=== PATIENT | male | born 1950 | race African-American/Black ===

== ENCOUNTER 2016-10-01 08:21 | Inpatient (IN) ==
[2016-10-01] MEDS ORDERED: MORPHINE 2 MG/1 ML SYRINGE IV STA (09:46)
[2016-10-01] MEDS ORDERED: methylPREDNISolone SOD SUC 125 MG/2 ML VIAL IV STA (09:46)
[2016-10-01] MEDS ORDERED: SODIUM CHLORIDE 0.9% 500 ML IV STA (09:46)
[2016-10-01] MEDS ORDERED: NITROGLYCERIN 2% OINT 1 INCH/GM PACK TOP STA (09:46)
[2016-10-01] MEDS ORDERED: ALUM/MAG/SIMETH/LIDO VISC 1:1 30 ML BOTTLE PO STA (09:46)
[2016-10-01] MEDS ORDERED: ALBUTEROL/IPRATROPIUM 3 ML NEB RESP TX STA (09:46)
[2016-10-01] MEDS ORDERED: ONDANSETRON 4 MG/2 ML VIAL IV STA (09:46)
[2016-10-01] MEDS ORDERED: ASPIRIN 325 MG TABLET PO STA (09:46)
[2016-10-01] MEDS ORDERED: NITROGLYCERIN 2% OINT 1 INCH/GM PACK TOP ONE (09:56)
[2016-10-01] MEDS ORDERED: ONDANSETRON 4 MG/2 ML VIAL ONE (09:56)
[2016-10-01] MEDS ORDERED: ALUM/MAG/SIMETH/LIDO VISC 1:1 30 ML BOTTLE PO ONE (09:57)
[2016-10-01] MEDS ORDERED: ASPIRIN 325 MG TABLET ONE (09:57)
[2016-10-01] MEDS ORDERED: MORPHINE 2 MG/1 ML SYRINGE ONE (09:57)
[2016-10-01 09:58] LABS: Basophils % 0.3 % (0.0-0.8); Eosinophils # 0.1 10*3/uL (0.0-0.87); Eosinophils % 3.4 % (0.00-10.9); Hematocrit 40.3 VOL% (42.0-52.0); Hemoglobin 13.6 GM/DL (14.0-18.0); Immature Granulocytes % 0.3 %; Immature Granulocytes Absolute 0.01 #; Lymphocytes # 1.4 10*3/uL (1.4-4.0); Mean Corpuscular HGB Conc 33.7 GM/DL (32-36); Mean Corpuscular Hemoglobin 32 PG (27-34); Mean Platelet Volume 10.6 FL (9.6-12.0); Monocytes # 0.3 10*3/uL (0.11-0.8); Monocytes % 6.9 % (1.7-12.7); Neutrophils % 53.1 % (38.7-73.9); Platelet Count 185 T/CUMM (130-400); Red Blood Count 4.24 MC/CUMM (3.8-5.5); Red Cell Distribution Width 13.4 % (9.3-17.3); White Blood Count 3.8 T/CUMM (4-12)
--- NOTE | 2016-10-01 10:02 | XRay Report ---
XR chest 1V portable Indication: Chest pain Comparison: Chest x-ray dated June 29, 2015 Technique: Single frontal view of the chest. Findings: The cardiomediastinal silhouette is stable in configuration. Port catheter appears grossly unchanged. No focal consolidation, pleural effusion, or pneumothorax. Visualized osseous and surrounding soft tissue structures appear grossly unchanged. IMPRESSION: No acute cardiopulmonary process demonstrated. PROCEDURE INTERPRETED AT [facility] DEPARTMENT OF RADIOLOGY Final Report Signed by: Dr Nael Mak
[2016-10-01 10:05] LABS: PT Patient Result 10.6 SECS
[2016-10-01] MEDS ORDERED: methylPREDNISolone SOD SUC 125 MG/2 ML VIAL ONE (10:06)
--- NOTE | 2016-10-01 10:10 | Emergency Department Note ---
ILaisha Gwan, am scribing for, and in the presence of, Star Simpson MD 09 :40. ITatiana Charles R, MD, personally performed the services described in this documentation, ascribed by Sharif Interiano in my presence, and it is both accurate and complete . Arrival - Arrival Chief Complaint: Chest Pain Stated Complaint: chest ED Nursing Triage Note: pt reports pain in center of his chest for one week. upon further questioning reports that he has been trying to fight off a cold for a week but cant get anything up. pt reports that he woke up this morning feeling weak. Mode of Arrival: Ambulatory Limitations: No Limitations Source: Patient, Guardian (Employer ), Old Records Reviewed, RN Notes Reviewed Time Seen by Provider: 10/01/16 09:13 - History of Present Illness HPI Narrative: Patient is a ill-appearing 66 y/o black male who presents to the ED with a c/o generalized weakness and chest pain with an onset 3 weeks ago. Patient is a poor historian but he is accompanied by his employer. His associated sxs have been dry cough, worsening chest pain with exertion and pt stated that it feels as if he can not get "it" to come up even though he has been trying to cough it up. Employer confirmed that he went to pick the pt up this morning and he noticed that the pt could barely stand and appeared very weak prompting their visit to the ED for further evaluation. Employer continued to note that the pt has been c/o a cold with cough and congestion for the past 2 weeks. Patient confirmed that he has a SHx of smoking and ETOH use only on the weekends. No other problems/complaints reported in ED. Onset (ago): week(s) Consistency: constant Severity: moderate Allergies/Adverse Reactions: Allergies Allergy/AdvReac Type Severity Reaction Status Date / Time Penicillins Allergy Unknown Unknown/Unable Verified 06/29/15 11:25 to obtain Home Medications: Home Medications Medication Instructions Recorded Confirmed Type No Known Home Medications [No 10/01/16 10/01/16 History Known Home Medications] Review of System - Review of System 12 point system: reviewed and no additional remarkable complaints except as stated - Review of System Constitutional: Absent: chills, diaphoresis, fever Eyes: Absent: discharge, pain Head/Ears/Nose/Throat: Absent: earache Respiratory: Present: as per HPI, cough, other (shortness of breathe) Cardiovascular: Present: as per HPI, chest pain Gastrointestinal: Absent: abdominal pain, nausea Genitourinary male: Absent: urgency, dysuria, frequency Musculoskeletal: Absent: arm pain, back pain, leg pain, neck pain Skin: Absent: rash, lesions Neurological: Present: as per HPI, weakness. Absent: headache Medical,Surgical,& Family Hx - Social History Smoking Status: Current every day smoker Exam Vital Signs: Vital Signs Temperature 98.9 F 10/01/16 08:35 Pulse Rate 46 L 10/01/16 10:05 Respiratory Rate 12 10/01/16 10:05 Blood Pressure 117/78 10/01/16 09:30 O2 Sat by Pulse Oximetry 100 10/01/16 10:05 - General General appearance: alert, in no apparent distress, other (malnourished) - Head Head exam: Present: atraumatic, normocephalic - Eye Eye exam: Present: normal appearance, PERRL, EOMI - ENT ENT exam: Present: normal oropharynx, mucous membranes moist, TM's normal bilaterally, normal external ear exam - Neck Neck exam: Present: full ROM, trachea midline. Absent: tenderness - Chest Chest inspection: Present: symmetric chest wall rise. Absent: tenderness - Respiratory Respiratory exam: Present: rhonchi (bilaterally), wheezes (expiratory wheezes) - Cardiovascular Cardiovascular exam: Present: murmur (2/6 systolic injection murmur) - Abdominal Exam Abdominal exam: Present: soft, normal bowel sounds. Absent: distention, tenderness - Extremities Exam Extremities exam: Present: full ROM, other (clubbing noted to bilateral upper extremities to include his hands ). Absent: tenderness - Back Exam Back exam: Present: full ROM. Absent: tenderness - Neurological Exam Neurological exam: Present: alert, oriented X3, CN II-XII intact. Absent: motor sensory deficit - Psychiatric Psychiatric exam: Present: normal affect, normal mood - Skin Skin exam: Present: other (appearance of atrophied muscles) Course - Consultations Consultation #1: Hospitalist will admit patient Time: 11:06 Results - Labs CBC & BMP: 10/01/16 09:29 10/01/16 09:29 Lab Results: I have reviewed the patients labs Labs: Laboratory Tests 10/01/16 10/01/16 09:29 09:29 WBC 3.8 L RBC 4.24 Hgb 13.6 L Hct 40.3 L Plt Count 185 INR 1.0 PT Patient/Control Mix 10.6 D-Dimer, Quantitative <= 0.5 Laboratory Tests 10/01/16 10/01/16 10/01/16 09:29 09:29 09:29 D-Dimer, Quantitative <= 0.5 Sodium Potassium Chloride Carbon Dioxide BUN Creatinine Troponin I < 0.015 Total Protein Lipase Serum Alcohol < 15 L 10/01/16 09:29 D-Dimer, Quantitative Sodium 144 Potassium 3.7 Chloride 108 H Carbon Dioxide 27 BUN 10 Creatinine 1.00 Troponin I Total Protein 6.2 L Lipase 130.0 Serum Alcohol - Diagnostic Findings Procedure: Chest x-ray: report reviewed by me (No acute cardiopulmonary process demonstrated. ) Disposition Clinical Impression: Chest pain, Atypical chest pain, Acute dyspnea, Tobacco abuse, General weakness Case discussed with: patient Disposition: Still a Patient Condition: Stable Time of Disposition: 11:07
[2016-10-01 10:19] LABS: D-Dimer <= 0.5 MG/L FEU
[2016-10-01 10:20] LABS: Albumin 3.4 G/DL (3.4-5.0); Bilirubin,Total 0.6 MG/DL (0.2-1.0); Calcium 8.5 MG/DL (8.5-10.1); Magnesium 2.2 MG/DL (1.8-2.4); Osmolality,Calculated 283.8 MOS/KG (273-304); Potassium 3.7 MMOL/L (3.5-5.1); Total Protein 6.2 G/DL (6.4-8.3)
--- NOTE | 2016-10-01 10:46 | EKG Report ---
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
--- NOTE | 2016-10-01 11:46 | Hospitalist History & Physical ---
<Eden Galoda - Last Filed: 10/01/16 11:35> Assessment and Plan (1) Chest pain Status: Acute Assessment and plan: Initial troponins were essentially benign, we will conduct a full cardiac workup. We will obtain echo, carotid doppler, lipid panel, and thyroid panel. If troponins are positive, we will consult cardiology to evaluate. Current Visit: Yes (2) Acute dyspnea Status: Acute Assessment and plan: Although his chest x-ray was clear and his WBCs were insignificant, the patient may have some underlying pulmonary processes which are probably chronic in nature. We will start inhaled bronchodilators; no need for antibiotic coverage at this time. Current Visit: Yes (3) Tobacco abuse Status: Acute Assessment and plan: The patient reports current tobacco use, however reports that he is going to stop. Spoke with patient in great detail regarding the importance of cessation , we will place a nicotine patch on during the clinical encounter. Patient is in agreement. Current Visit: Yes (4) General weakness Status: Acute Assessment and plan: I feel his weakness is secondary to the severity of his symptoms. Either way we will conduct a full cardiac workup. We will consult physical therapy and Occupational Therapy to evaluate. Current Visit: Yes History of Present Illness Chief complaint: chest pain and shortness of breath History of present illness: This is a very pleasant 66-year-old male that presented to the ED at [facility] for evaluation of chest pain and shortness of breath. The patient has a medical history significant for nicotine addiction and alcohol abuse. The patient reports the onset of the above symptoms 2 weeks prior to presentation. He reports that he has become gradually weaker and short of breath as the time progressed. He also reports that he has not been able to work efficiently secondary to the above symptoms. Pertinent positives include: Shortness of breath, cough, chest pain; pertinent negatives include: syncope, diaphoresis, vision changes, headache, jaw and arm pain, nausea, vomiting, and epigastric pain. In addition the patient reports cold-like symptoms 2 weeks. He reports that he is a current smoker Labs were obtained at the time of presentation which reported a white blood cell count at 3.8, hemoglobin at 13.6, hematocrit 40.3, and platelet count 185 chloride. Coagulation panels were obtained which reported an INR at 1.0, PT of 10.6, and d-dimer at greater than or equal to 0.5 chemistry panels were obtained which reported a sodium at 144, potassium 3.7, chloride at 108, carbon dioxide 27, anion gap at 12.7, BUN 18, creatinine at 1.0, glucose at 84, calcium at 8.5, magnesium at 2.2, total bilirubin at 0.60, AST of 28, ALT at 21 , and alkaline phosphatase at 63. Troponin level was noted at less than 0.015 and BNP was noted at 33. Serum alcohol level was noted at less than 15. Chest x-ray was obtained which was negative for any acute cardiopulmonary processes. After brief discussion with Dr. Dr. Simpson and Dr. Arita, the patient will be admitted to the hospitalist services for continuation of care. Home Medications Medication Instructions Recorded Confirmed Type No Known Home Medications [No 10/01/16 10/01/16 History Known Home Medications] Allergies Allergy/AdvReac Type Severity Reaction Status Date / Time Penicillins Allergy Unknown Unknown/Unable Verified 06/29/15 11:25 to obtain Medical,Surgical,& Family Hx - Social History Smoking Status: Current every day smoker Have you smoked in the last 12 months: Yes Time spent discussing smoking cessation with patient: more than 10 minutes Frequency of Alcohol Use: None Marital Status: Single Lives With:: Alone Functional capacity: independent ambulation 12 point system: reviewed and no additional remarkable complaints except as stated Exam - Constitutional Vitals: Period Temp Pulse Resp BP Sys/Santamaria Pulse Ox Last 24 Hr 98.9 F 45-69 12-20 117-131/74-82 94-100 General appearance: no acute distress, under weight - Head Head exam: Present: normal inspection, normocephalic, atraumatic - Eye Eye exam: Present: EOMI. Absent: conjunctival injection Pupils: Present: JACQUELYN, normal accommodation - ENT ENT exam: Present: normal exam, normal external ear exam, normal oropharynx - Neck Neck exam: Present: normal inspection. Absent: lymphadenopathy, meningismus, tenderness, thyromegaly - Respiratory Respiratory exam: Present: clear to auscultation bilaterally, rhonchi (Scattered ), wheezes (Expiratory) - Cardiovascular Cardiovascular exam: Present: regular rate and rhythm, systolic murmur - GI/Abdominal GI/Abdominal exam: Present: normal bowel sounds, soft. Absent: tenderness - Extremities Exam Extremities exam: Present: normal inspection, normal capillary refill, full ROM. Absent: calf tenderness, edema - Back Exam Back exam: Present: normal inspection - Neurological Exam Neurological exam: Present: alert, oriented X3, CN II-XII intact - Psychiatric Psychiatric exam: Present: normal affect, normal mood - Skin Skin exam: Present: normal color, warm, dry Results - Labs CBC & BMP: 10/01/16 09:29 10/01/16 09:29 Lab Results: I have reviewed the past 24 hour labs <Joe Arita - Last Filed: 10/01/16 13:29> History of Present Illness History of present illness: Mr. Segundo is a 66 year old male Exam - Constitutional Vitals: Period Temp Pulse Resp BP Sys/Santamaria Pulse Ox Last 24 Hr 98.8 F-98.9 F 45-69 12-20 117-131/74-83 94-100 Results - Labs CBC & BMP: 10/01/16 09:29 10/01/16 09:29
--- NOTE | 2016-10-01 14:11 | EKG Report ---
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
--- NOTE | 2016-10-01 15:14 | EKG Report ---
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
[2016-10-01] MEDS: ALUMINUM/MAGNES/SIMETH MAX STR 30 ML UDCUP PO SCH ×2 (15:54→19:11)
[2016-10-01] MEDS: SODIUM CHLORIDE 0.9% 1,000 ML IV SCH (15:55)
[2016-10-01] MEDS: HYDROmorphone 2 MG/1 ML VIAL IV PRN (20:03)
[2016-10-01] MEDS: PANTOPRAZOLE 40 MG TABLET PO SCH (21:45)
--- NOTE | 2016-10-01 22:02 | Cardiology Consult Note ---
I, Nancy Herman RN, am scribing for, and in the presence of, Tomi Hough MD 22:02. Assessment and Plan - Time spent with patient Time spent with patient: Greater than 30 minutes (Due to assessment, planning, documentation, and medication review) (1) Chest pain Status: Acute Assessment and plan: The patient is very vague regarding his "chest pain". He states his indigestion or gas. Is in the left anterior chest area about a quarter sized area. There is some chest wall tenderness at that time area but he also has tenderness of his abdomen. Differential diagnosis would include chest wall pain, GI, muscle skeletal, or some other cause. My suspicion that this is ACS or even cardiac related is low. Plan/recommendations: Serial isoenzymes. Serial EKGs. Treat chest wall pain-tramadol, Tylenol, gabapentin tx for GE reflux Further workup is being done An echo has been ordered. Will review it. At this point, I do not believe he needs a heart catheter or treadmill. It could be done later, outpatient if needed. 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 Segundo is a 66 year old male who has never been seen by a dispatcher automobile rental. He is a poor historian and does not really want to talk about his symptoms. When asked about his history, he tells me he has never been sick. He has a port to his right chest. When I ask about this, he tells me he got that after he had his "intestines blocked" in 2013 and had surgery for that. Family history that he knows includes mother with heart failure and brother with heart disease. He reports he is a 2 pack/week smoker, but that he quit today. He drinks alcohol weekly, but he reports that he quit that today as well. He says he lives at an "adult daycare". He tells me he has had a cough for 3 weeks. He says he has "cold" in his chest , but he has been unable to cough it up. When I first ask him about his chest pain, he tells me that he hasn't had any pain. When asked again, he says it is related to the congestion in his chest. He can not describe it for me or answer any questions about it. He tells me he has not been short of breath, then he tells me that he has been short of breath. I cannot from him if this is at rest or on exertion. EKG on admission was sinus bradycardia with heart rate of 53. Chest x-ray showed no acute cardiopulmonary process. Presently he is resting in bed in no acute distress. He denies any chest pain or shortness of breath at present. Troponin has been negative times 2, BNP was 33. gambling monitor currently shows sinus rhythm with heart rates in the 60' s. CC: Joe Arita MD - Home Medications and Allergies Home Medications: Home Medications Medication Instructions Recorded Confirmed Type No Known Home Medications [No 10/01/16 10/01/16 History Known Home Medications] Allergies/Adverse Reactions: Allergies Allergy/AdvReac Type Severity Reaction Status Date / Time Penicillins Allergy Unknown Unknown/Unable Verified 06/29/15 11:25 to obtain ROS unobtainable: due to mental status Medical,Surgical,& Family Hx - Surgical History Abdominal Surgeries: Surgical HX of: Abdominal Surgery ("stomcah surgery") Orthopedic Surgeries: Surgical HX of;: Orthopedic Surgery (right collar bone, right wrist) - Family History Family History: Reports;: Family Heart Disease (Mother, brother) - Social History Smoking Status: Current every day smoker (states he quit today) Have you smoked in the last 12 months: Yes Time spent discussing smoking cessation with patient: 3 to 10 minutes Frequency of Alcohol Use: Frequently (states he quit today) Type of Drug Use: Cocaine Lives With:: states he lives at an "adult daycare" Functional capacity: independent ambulation Physical Examination Vital Signs Temp Pulse Resp BP Pulse Ox 98.9 F 69 18 121/74 94 L 10/01/16 08:35 10/01/16 08:35 10/01/16 08:35 10/01/16 08:35 10/01/16 08:35 General: Present: Appears Well, No Apparent Distress HEENT: Present: PERRL, Mucus Membranes Moist Neck: Present: Supple Neck, Midline Trachea, No Bruit Cardiac: Present: Reg Rate and Rhythm, Bradycardia Lungs: Present: Scattered Rhonchi, No Wheezes, No Rales. Absent: Oxygen Neuro: Absent: Resting Tremor, Essential Tremor Abdomen: Present: Soft, Active Bowel Sounds, Non-Tender Musculoskeletal: Present: Normal Range of Motion Gait: Present: Poor Gait Extremities: Present: No Edema, Normal Upper Extr. Pulses, Normal Lower Extr. Pulses Result/EKG - Labs CBC & BMP: 10/01/16 09:29 10/01/16 09:29 Lab Results: I have reviewed the past 24 hour labs Labs: Laboratory Results - last 24 hr 10/01/16 10/01/16 10/01/16 09:29 09:29 09:29 WBC 3.8 L RBC 4.24 Hgb 13.6 L Hct 40.3 L MCV 95.0 MCH 32 MCHC 33.7 RDW 13.4 Plt Count 185 MPV 10.6 Neut % (Auto) 53.1 Lymph % (Auto) 36.0 [place] % (Auto) 6.9 Eos % (Auto) 3.4 Baso % (Auto) 0.3 Neut # (Auto) 2.0 Lymph # (Auto) 1.4 [place] # (Auto) 0.3 Eos # (Auto) 0.1 Baso # (Auto) 0.0 Immature Gran % 0.3 Nucleated RBC % 0.0 Immature Gran # 0.01 Nucleated RBCs # 0.00 INR PT Patient/Control Mix D-Dimer, Quantitative Sodium Potassium Chloride Carbon Dioxide Anion Gap BUN Creatinine GFR Calculation BUN/Creatinine Ratio Glucose Calculated Osmolality Calcium Magnesium Total Bilirubin AST ALT Alkaline Phosphatase Troponin I < 0.015 B-Natriuretic Peptide Total Protein Albumin Globulin Albumin/Globulin Ratio Lipase Serum Alcohol < 15 L 10/01/16 10/01/16 10/01/16 09:29 09:29 09:29 WBC RBC Hgb Hct MCV MCH MCHC RDW Plt Count MPV Neut % (Auto) Lymph % (Auto) [place] % (Auto) Eos % (Auto) Baso % (Auto) Neut # (Auto) Lymph # (Auto) [place] # (Auto) Eos # (Auto) Baso # (Auto) Immature Gran % Nucleated RBC % Immature Gran # Nucleated RBCs # INR 1.0 PT Patient/Control Mix 10.6 D-Dimer, Quantitative <= 0.5 Sodium 144 Potassium 3.7 Chloride 108 H Carbon Dioxide 27 Anion Gap 12.7 BUN 10 Creatinine 1.00 GFR Calculation 97 BUN/Creatinine Ratio 10.00 Glucose 84 Calculated Osmolality 283.8 Calcium 8.5 Magnesium 2.2 Total Bilirubin 0.60 AST 28 ALT 21 Alkaline Phosphatase 63 Troponin I B-Natriuretic Peptide 33 Total Protein 6.2 L Albumin 3.4 Globulin 2.8 Albumin/Globulin Ratio 1.2 Lipase 130.0 Serum Alcohol 10/01/16 12:52 WBC RBC Hgb Hct MCV MCH MCHC RDW Plt Count MPV Neut % (Auto) Lymph % (Auto) [place] % (Auto) Eos % (Auto) Baso % (Auto) Neut # (Auto) Lymph # (Auto) [place] # (Auto) Eos # (Auto) Baso # (Auto) Immature Gran % Nucleated RBC % Immature Gran # Nucleated RBCs # INR PT Patient/Control Mix D-Dimer, Quantitative Sodium Potassium Chloride Carbon Dioxide Anion Gap BUN Creatinine GFR Calculation BUN/Creatinine Ratio Glucose Calculated Osmolality Calcium Magnesium Total Bilirubin AST ALT Alkaline Phosphatase Troponin I < 0.015 B-Natriuretic Peptide Total Protein Albumin Globulin Albumin/Globulin Ratio Lipase Serum Alcohol - Diagnostic Findings Procedure: Chest x-ray: report reviewed by me - EKG EKG results: interpreted by me EKG shows: sinus rhythm IGianluca Dale, MD, personally performed the services described in this documentation, ascribed by Nancy Herman RN in my presence, and it is both accurate and complete .
[2016-10-02] MEDS: ALUMINUM/MAGNES/SIMETH MAX STR 30 ML UDCUP PO SCH ×3 (00:31→08:40)
[2016-10-02] MEDS: SODIUM CHLORIDE 0.9% 1,000 ML IV SCH ×5 (01:30→23:55)
[2016-10-02] MEDS: HYDROmorphone 2 MG/1 ML VIAL IV PRN (02:36)
[2016-10-02 06:08] LABS: Alanine Aminotransferase 19 U/L (16-61); Albumin 2.9 G/DL (3.4-5.0); Alkaline Phosphatase 56 U/L (45-117); Aspartate Amino Transferase 19 U/L (0-37); Blood Urea Nitrogen 12 MG/DL (7-18); Calcium 8.6 MG/DL (8.5-10.1); Glucose 88 MG/DL (74-106); Magnesium 2.4 MG/DL (1.8-2.4); Osmolality,Calculated 286.7 MOS/KG (273-304); Potassium 3.9 MMOL/L (3.5-5.1); Sodium 145 MMOL/L (136-145); Total Protein 5.4 G/DL (6.4-8.3); Troponin I Only < 0.015 NG/ML (0.00-0.045)
[2016-10-02] MEDS: PANTOPRAZOLE 40 MG TABLET PO SCH ×2 (08:40→21:57)
--- NOTE | 2016-10-02 09:25 | Hospitalist Progress Note ---
Assessment and Plan (1) Chest pain Status: Acute Assessment and plan: Initial troponins were essentially benign, we will conduct a full cardiac workup. We will obtain echo, If troponins are positive, we will consult cardiology to evaluate. 10/02-repeat cardiac enzymes were negative. Echo was obtained; awaiting results. No further episodes of chest pain and discomfort verbalized. Current Visit: Yes (2) Acute dyspnea Status: Acute Assessment and plan: Although his chest x-ray was clear and his WBCs were insignificant, the patient may have some underlying pulmonary processes which are probably chronic in nature. We will start inhaled bronchodilators; no need for antibiotic coverage at this time. 10/02-no further episodes of shortness of breath reported. Continue inhaled bronchodilators as previously ordered period. Current Visit: Yes (3) Tobacco abuse Status: Acute Assessment and plan: The patient reports current tobacco use, however reports that he is going to stop. Spoke with patient in great detail regarding the importance of cessation , we will place a nicotine patch on during the clinical encounter. Patient is in agreement. Current Visit: Yes (4) General weakness Status: Acute Assessment and plan: I feel his weakness is secondary to the severity of his symptoms. Either way we will conduct a full cardiac workup. We will consult physical therapy and Occupational Therapy to evaluate. Current Visit: Yes (5) Abdominal pain Status: Acute Assessment and plan: Patient reported abdominal pain only after breakfast consumption. I have asked patient not to attempt to eat any additional food. Will obtain CT of the abdomen and pelvis without contrast to evaluate. GI was consulted on yesterday awaiting evaluation. Current Visit: No Hospitalist: Subjective Interval history: Patient seen and examined; no significant overnight events. Cardiac enzymes were benign; however the patient verbalizes intense abdominal pain. He reported the onset of pain immediately after his medial. We will obtain CT of the abdomen and pelvis for good measures. Exam - Constitutional Vitals: Period Temp Pulse Resp BP Sys/Santamaria Pulse Ox Last 24 Hr 98.0 F-99.2 F 45-80 12-20 97-131/53-83 94-100 General appearance: normal weight, no acute distress - Head Head exam: Present: normal inspection, normocephalic, atraumatic - Eye Eye exam: Present: EOMI. Absent: conjunctival injection Pupils: Present: JACQUELYN, normal accommodation - ENT ENT exam: Present: normal exam, normal external ear exam, normal oropharynx - Neck Neck exam: Present: normal inspection. Absent: lymphadenopathy, meningismus, tenderness, thyromegaly - Respiratory Respiratory exam: Present: clear to auscultation bilaterally. Absent: rales, rhonchi, stridor, wheezes - Cardiovascular Cardiovascular exam: Present: regular rate and rhythm. Absent: carotid bruit, diastolic murmur, gallop, JVD, rubs, systolic murmur - GI/Abdominal GI/Abdominal exam: Present: normal bowel sounds, tenderness - Extremities Exam Extremities exam: Present: normal inspection, normal capillary refill, full ROM. Absent: calf tenderness, edema - Neurological Exam Neurological exam: Present: alert, oriented X3, CN II-XII intact - Psychiatric Psychiatric exam: Present: normal affect, normal mood - Skin Skin exam: Present: normal color, warm, dry Results - Labs CBC & BMP: 10/01/16 09:29 10/02/16 04:55 Lab Results: I have reviewed the past 24 hour labs
--- NOTE | 2016-10-02 09:53 | Gastrointestinal Consult Note ---
Assessment and Plan (1) Abdominal pain Status: Acute Assessment and plan: 6/-Worsening epigastric pain, no precipitating factors. No other associated symptoms. Hx of colon cancer in 2013 with resection/chemotherapy. No known history of endoscopy at our facility. CT of abdomen pending this morning. Plan and addendum to follow by Dr Lucas. Current Visit: No History of Present Illness Chief complaint: Epigastric pain History of present illness: Mr. Segundo is a 66 year old male who was admitted to the hospital with atypical chest pain. Pt is a fair historian and difficult to keep focused on current health status. Information is also obtained from chart review. 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 He goes to work daily however when his employer came to pick him up on yesterday he was weak and unable to stand. He was also complaining of a cough and congestion for the last 2-3 weeks. He was then brought to the ER. Pt states that 3 weeks ago he developed a cough and has been unable to cough anything up since onset. He states he coughs constantly. He also states he has been having some upper abdominal pain that he has had off and on for several years. He states the pain doesnt seem to be precipitated by any known factors and just occurs randomly. He does state that it seems to worsen at times after eating a meal. He denies any nausea, vomiting or weight loss. He denies any changes in his bowel pattern. Denies any melena or hematochezia. Denies any GERD, dysphagia or dyspepsia. He states that he uses home remedies when he is sick such as he has been eating "[employer] salve" since he was a child for different ailments. He smokes daily and also has drank a couple of cases of beer every weekend for forty something years although denies drinking daily or during the work week. He states he is going to stop his alcohol and tobacco use now. He denies any history of endoscopy however noted he did have a right colectomy by Dr Rodriguez in 2012 after findings of colon cancer with near obstruction mass and partial perforation of peritoneal viscera. He also underwent several rounds of chemotherapy for this. He denies a history of PUD in the past. Denies NSAID use and states he takes no medications. Home Medications Medication Instructions Recorded Confirmed Type No Known Home Medications [No 10/01/16 10/01/16 History Known Home Medications] Allergies Allergy/AdvReac Type Severity Reaction Status Date / Time Penicillins Allergy Unknown Unknown/Unable Verified 06/29/15 11:25 to obtain Medical,Surgical,& Family Hx - Surgical History Abdominal Surgeries: Surgical HX of: Abdominal Surgery ("stomcah surgery") Orthopedic Surgeries: Surgical HX of;: Orthopedic Surgery (right collar bone, right wrist) - Family History Family History: Reports;: Family Heart Disease (Mother, brother) - Social History Smoking Status: Current every day smoker (states he quit today) Frequency of Alcohol Use: Frequently (states he quit today) Type of Drug Use: Cocaine 12 point system: reviewed and no additional remarkable complaints except as stated - Constitutional Constitutional: Present: as per HPI - EENT Eyes: Present: as per HPI Ears: Present: as per HPI Nose, mouth and throat: Present: as per HPI - Cardiovascular Cardiovascular: Present: as per HPI - Respiratory Respiratory: Present: as per HPI, cough - Gastrointestinal Gastrointestinal: Present: as per HPI, abdominal pain - Genitourinary Genitourinary: Present: as per HPI - Musculoskeletal Musculoskeletal: Present: as per HPI - Neurological Neurological: Present: as per HPI - Psychiatric Psychiatric: Present: as per HPI - Endocrine Endocrine: Present: as per HPI - Hematologic/Lymphatic Hematologic/Lymphatic: Present: as per HPI Exam - Constitutional Vitals: Period Temp Pulse Resp BP Sys/Santamaria Pulse Ox Last 24 Hr 98.0 F-99.2 F 45-80 12-20 97-131/53-83 94-100 General appearance: normal weight, no acute distress - Head Head exam: Present: normal inspection, normocephalic - Eye Eye exam: Present: other (lids and conjuncitva unremarkable). Absent: scleral icterus - ENT ENT exam: Present: normal exam, normal oropharynx - Neck Neck exam: Present: normal inspection - Respiratory Respiratory exam: Present: clear to auscultation bilaterally. Absent: rales, rhonchi, wheezes - Cardiovascular Cardiovascular exam: Present: regular rate and rhythm. Absent: diastolic murmur , JVD, systolic murmur - GI/Abdominal GI/Abdominal exam: Present: normal bowel sounds, soft. Absent: ascites, distended, mass, organomegaly, tenderness - Extremities Exam Extremities exam: Present: normal inspection, full ROM - Back Exam Back exam: Present: normal inspection - Neurological Exam Neurological exam: Present: alert, oriented X3 - Psychiatric Psychiatric exam: Present: normal affect, normal mood - Skin Skin exam: Present: normal color, warm, dry Results - Labs CBC & BMP: 10/01/16 09:29 10/02/16 04:55 Lab Results: I have reviewed the past 24 hour labs
--- NOTE | 2016-10-02 10:17 | CT Report ---
Referring physician: Lisa Moreno MD EXAM: CT abdomen and pelvis without contrast DATE: October 02, 2016 COMPARISON: CT abdomen and pelvis with contrast September 30, 2016 REASON: Generalized abdominal pain, history of colon cancer TECHNIQUE: Axial images of the abdomen and pelvis were obtained without the use of contrast. Coronal and sagittal reformatted images were also provided. Total DLP is 227.6 mGy*cm. FINDINGS: Lower thorax: There is again a calcified granuloma within the right lower lobe, and there is minimal bibasilar atelectasis. ABDOMEN: Liver: There are a few scattered hypodense lesions within the liver. Characterization is limited by the lack of contrast, but they are similar to the previous study of September 30, 2016 and are favored to represent cysts. Gallbladder and bile ducts: The gallbladder is poorly visualized and is likely collapsed. No biliary duct dilatation is seen. Pancreas: Unremarkable as visualized. Spleen: Unremarkable. Adrenals: Unremarkable. Kidneys and ureters: There is a 0.3 cm nonobstructing stone at the lower pole of the left kidney. A few additional punctate nonobstructing renal calculi are also present bilaterally. No hydronephrosis is present, and no ureteral calculi are seen. PELVIS: Bladder: Unremarkable. Reproductive: The prostate is mildly enlarged. ABDOMEN AND PELVIS: Bowel/appendix: There is surgical change within the upper abdomen near midline, suggesting right hemicolectomy. There are also a few mildly distended loops of small bowel with air-fluid levels present within the mid and right upper abdomen. This is a new finding and could represent mild ileus or partial small bowel obstruction. Other considerations include enteritis, especially given the mild fluid within the colon. Evaluation for bowel wall thickening is limited by the lack of contrast. Vasculature: The abdominal aorta is normal in size. There is mild scattered calcified plaque at the arteries. Peritoneum: No free air or ascites is seen. There is mild scattered mesenteric edema. Lymph nodes: No suspicious adenopathy is seen. Abdominal/pelvic wall: Unremarkable. Bones: There is degenerative change at the spine, but no acute osseous process is seen. IMPRESSION: 1. There are a few mildly prominent loops of small bowel with air-fluid levels present within the mid and right upper abdomen. This is a new finding and may represent mild ileus or low-grade partial small bowel obstruction. Other considerations include enteritis. 2. Probable hepatic cysts, not well characterized. 3. Small nonobstructing bilateral renal calculi. The CT exam was performed using one or more of the following dose reduction techniques: Automated exposure control and adjustment of the mA and/or kV according to patient size. PROCEDURE INTERPRETED AT [facility] DEPARTMENT OF RADIOLOGY Final Report Signed by: Dr. Skyler Lorenzo
--- NOTE | 2016-10-02 12:48 | EKG Report ---
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
[2016-10-02] MEDS ORDERED: NAPROXEN 250 MG TABLET PO ONE (13:29)
[2016-10-02] MEDS: ACETAMINOPHEN 325 MG TABLET PO SCH ×2 (13:47→21:57)
[2016-10-02] MEDS: traMADol 50 MG TABLET PO SCH ×2 (13:47→21:57)
[2016-10-02] MEDS: GABAPENTIN 100 MG CAPSULE PO SCH ×2 (16:24→21:58)
--- NOTE | 2016-10-02 23:56 | Cardiology Progress Note ---
I, Nancy Herman RN, am scribing for, and in the presence of, Tomi Hough MD 23:56. Assessment and Plan (1) Chest pain Status: Acute Assessment and plan: Initial assessment and plan 10/01/2016: Assessment and plan: The patient is very vague regarding his "chest pain". He states his indigestion or gas. Is in the left anterior chest area about a quarter sized area. There is some chest wall tenderness at that time area but he also has tenderness of his abdomen. Differential diagnosis would include chest wall pain, GI, muscle skeletal, or some other cause. My suspicion that this is ACS or even cardiac related is low. Plan/recommendations: Serial isoenzymes. Serial EKGs. Treat chest wall pain-tramadol, Tylenol, gabapentin tx for GE reflux Further workup is being done An echo has been ordered. Will review it. At this point, I do not believe he needs a heart catheter or treadmill. It could be done later, outpatient if needed. Assessment and plan 10/02/2016: He has ongoing reproducible left chest wall pain. We'll give a trial of: Tramadol 50 mg by mouth twice a day Tylenol 325 mg by mouth now and twice a day Gabapentin 100 mg by mouth 3 times a day will Assess response to therapy I discussed with the patient. He agrees with the plan. He requests being better before being discharged. I told him we would try our best.. Current Visit: Yes (2) Dyspnea Status: Acute Current Visit: Yes (3) Tobacco abuse Status: Acute Current Visit: Yes (4) Bradycardia Status: Acute Current Visit: Yes Cardiology - PN: Subj Interval history: [employer]: New to cardiology Mr. Segundo is seen resting in bed in no acute distress. He reports he continues to have some chest pain periodically, but states it is better than on admission. He denies any shortness of breath, palpitations, or dizziness. His heart rate has been fluctuating from the 40s to the 80s. lunchroom monitor showed sinus bradycardia with heart rate of 40 around lunchtime. An EKG was obtained that showed sinus bradycardia with heart rate of 49. His nurse says that most of his low heart rates occur when he is sleeping. His troponin continues to be negative. GI has seen him in consultation for abdominal pain. Exam (Progress Note) - Constitutional Vitals: Period Temp Pulse Resp BP Sys/Santamaria Pulse Ox Last 24 Hr 98.0 F-99.2 F 50-80 18-20 97-116/53-72 94-99 Exam: General: Present: Appears Well, No Apparent Distress HEENT: Present: PERRL, Mucus Membranes Moist Neck: Present: Supple Neck, Midline Trachea, No Bruit Cardiac: Present: Reg Rate and Rhythm, Bradycardia Lungs: Present: Scattered Rhonchi, No Wheezes, No Rales. Absent: Oxygen Neuro: Absent: Resting Tremor, Essential Tremor Abdomen: Present: Soft, Active Bowel Sounds, Non-Tender Musculoskeletal: Present: Normal Range of Motion Gait: Present: Poor Gait Extremities: Present: No Edema, Normal Upper Extr. Pulses, Normal Lower Extr. Pulses Result/EKG - Labs CBC & BMP: 10/01/16 09:29 10/02/16 04:55 Lab Results: I have reviewed the past 24 hour labs Labs: Laboratory Results - last 24 hr 10/01/16 10/02/16 16:00 04:55 Sodium 145 Potassium 3.9 Chloride 108 H Carbon Dioxide 28 Anion Gap 12.9 BUN 12 Creatinine 1.10 GFR Calculation 85 BUN/Creatinine Ratio 10.00 Glucose 88 Calculated Osmolality 286.7 Calcium 8.6 Magnesium 2.4 Total Bilirubin 0.50 AST 19 ALT 19 Alkaline Phosphatase 56 Total Creatine Kinase 319 H Troponin I < 0.015 < 0.015 Total Protein 5.4 L Albumin 2.9 L Globulin 2.5 Albumin/Globulin Ratio 1.1 - EKG EKG results: interpreted by me EKG shows: bradycardia, sinus rhythm I, Tomi Hough MD, personally performed the services described in this documentation, ascribed by Nancy Herman RN in my presence, and it is both accurate and complete [id number] .
[2016-10-03 05:37] LABS: Eosinophils # 0.1 10*3/uL (0.0-0.87); Eosinophils % 2.1 % (0.00-10.9); Hematocrit 38.1 VOL% (42.0-52.0); Hemoglobin 12.3 GM/DL (14.0-18.0); Lymphocytes # 2.6 10*3/uL (1.4-4.0); Lymphocytes % 60.6 % (21.2-54.2); Mean Corpuscular HGB Conc 32.3 GM/DL (32-36); Mean Corpuscular Hemoglobin 31 PG (27-34); Mean Corpuscular Volume 97.2 FL (87-102); Mean Platelet Volume 10.9 FL (9.6-12.0); Monocytes # 0.2 10*3/uL (0.11-0.8); Monocytes % 5.6 % (1.7-12.7); Neutrophils # 1.4 10*3/uL (1.4-7.4); Neutrophils % 31.7 % (38.7-73.9); Platelet Count 173 T/CUMM (130-400); Red Blood Count 3.92 MC/CUMM (3.8-5.5); Red Cell Distribution Width 13.6 % (9.3-17.3); White Blood Count 4.3 T/CUMM (4-12)
[2016-10-03 06:05] LABS: Albumin 2.9 G/DL (3.4-5.0); Bilirubin,Total 0.6 MG/DL (0.2-1.0); Calcium 7.9 MG/DL (8.5-10.1); Lymphocytes 63 % (20-55); Magnesium 2.5 MG/DL (1.8-2.4); Osmolality,Calculated 289.6 MOS/KG (273-304); Phosphorous 4.1 MG/DL (2.5-4.9); Potassium 4.7 MMOL/L (3.5-5.1); Segmented Neutrophils 29 % (50-85); Total Cells Counted 100; Total Protein 5.5 G/DL (6.4-8.3)
[2016-10-03 06:06] LABS: Macrocytosis Slight
[2016-10-03 06:07] LABS: Atypical Lymphocytes Few; Hypochromasia 1+; Platelet Estimate Adequate
--- NOTE | 2016-10-03 08:55 | Discharge Summary ---
Hospital Course - Hospital Course Hospital Course: Mr. Segundo is a 66-year-old -[place] male who presented to the ED on 10/01/2016 with complaints of generalized weakness and chest pain for 3 days. Patient was evaluated and subsequently admitted to the hospital medicine service for further observation and treatment. EKG on admission showed sinus bradycardia with T-wave abnormality. Chest x-ray on admission revealed no acute cardiopulmonary process. Patient was transferred to the telemetry unit and cardiology was consulted. Cardiology recommended serial isoenzymes and EKGs , analgesics for chest wall pain and treatment for GERD related symptoms. Subsequent CT of the abdomen was ordered and found a few mildly prominent loops of small bowel with air-fluid levels present within the mid and right upper abdomen. This is a new finding and may represent mild ileus or low-grade partial small bowel obstruction. GI was consulted and found no suggestion of small bowel obstruction however an EGD was planned for 10/03/2016 with an outpatient follow-up colonoscopy. Serial enzymes are negative. Results of the EGD show a small hiatal hernia, otherwise normal EGD. At this time patient has reached maximum benefit from hospitalization and stable for discharge. He will be discharged home with appropriate follow-up instructions per discharge orders as outlined by Dr. Moreno. He should continue PPI therapy outpatient. - Time spent with patient Time with patient DS: Greater than 30 minutes Specialty Discharge - Follow Up or Referrals Follow up with: Tomi Hough MD [Physician] - (In November) Boom Lucas MD [Physician] - (office will call you with appt) Discharge Plan - Discharge Medications New RX: Pantoprazole Tab [Protonix Tab] 40 mg PO BID #60 tablet RX: Gabapentin Cap/Tab [Neurontin Cap/Tab] 100 mg PO TID #90 capsule - Follow Up or Referral Follow Up: Tomi Hough MD [Physician] - (In November) Boom Lucas MD [Physician] - (office will call you with appt) - Forms/Instructions Exam - Constitutional Vitals: Period Temp Pulse Resp BP Sys/Santamaria Pulse Ox Last 24 Hr 96.6 F-98.6 F 46-66 15-21 104-171/54-85 94-100 Discharge Results Procedures and tests throughout hospitalization: Pending Orders 10/04/16 04:00 BMP w/ Mg [Basic Metabolic Panel w/Mg] IN AM CBC [Comp Blood Count Auto Diff] IN AM 10/05/16 04:00 BMP w/ Mg [Basic Metabolic Panel w/Mg] IN AM CBC [Comp Blood Count Auto Diff] IN AM Labs on day of discharge: Labs from last 24 hours 10/03/16 10/03/16 04:28 04:28 WBC 4.3 RBC 3.92 Hgb 12.3 L Hct 38.1 L MCV 97.2 MCH 31 MCHC 32.3 RDW 13.6 Plt Count 173 MPV 10.9 Neut % (Auto) 31.7 L Lymph % (Auto) 60.6 H Cuming % (Auto) 5.6 Eos % (Auto) 2.1 Baso % (Auto) 0.0 Neut # (Auto) 1.4 Lymph # (Auto) 2.6 Cuming # (Auto) 0.2 Eos # (Auto) 0.1 Baso # (Auto) 0.0 Total Counted 100 Immature Gran % 0.0 Nucleated RBC % 0.0 Immature Gran # 0.00 Segmented Neutrophils 29 L Lymphocytes 63 H Monocytes 8 Nucleated RBCs # 0.00 Atypical Lymphocytes Few Platelet Estimate Adequate Hypochromasia 1+ Macrocytosis Slight Sodium 146 H Potassium 4.7 Chloride 110 H Carbon Dioxide 30 Anion Gap 10.7 BUN 14 Creatinine 1.00 GFR Calculation 96 BUN/Creatinine Ratio 14.00 Glucose 79 Calculated Osmolality 289.6 Calcium 7.9 L Phosphorus 4.1 Magnesium 2.5 H Total Bilirubin 0.60 AST 17 ALT 20 Alkaline Phosphatase 62 Total Protein 5.5 L Albumin 2.9 L Globulin 2.6 Albumin/Globulin Ratio 1.1 DS: Provider Date of admission: 10/01/16 11:05 Primary care physician: . No PCP Attending physician on admission: Joe Arita MD Consults: 10/01/16 12:46 Consult to Dietitian [CONS] Routine Reason for Dietitian: Other 10/01/16 15:09 Consult to Physician [CONS] Routine Comment: Consulting Provider: Cardiology - [facility] When should Consulting Provider be notified: Now Consult to Specialist Group: Cardiology Person Notified: COBY Date Notified: 10/01/16 Time Notified: 15:10 10/01/16 15:10 Consult to Physician [CONS] Routine Comment: Consulting Provider: Boom Lucas When should Consulting Provider be notified: Now 10/02/16 09:29 Consult to Occupational Therapy [CONS] Routine Reason for Occupational Therapy: Weakness Consult to Physical Therapy [CONS] Routine Reason for Physical Therapy: Weakness Discharging clinician: Matt CHEUNG Expected date of discharge: 10/03/16
--- NOTE | 2016-10-03 09:56 | History and Physical Update ---
History and Physical Update - History and Physical H&P was reviewed, the patient examined and there: are no changes in the patients condition since last H&P was completed. - Physical Exam Mental Status: alert and oriented Heart: regular rate and rhythm Lung: clear to auscultation Abdomen: within normal limits Vitals: within normal limits
--- NOTE | 2016-10-03 10:06 | Operative Note ---
Date of procedure: 10/03/16 Pre-op diagnosis: Epigastric pain, atypical chest pain Procedure: Procedure: Esophagogastroduodenoscopy Brief clinical abstract: Patient is a 66-year-old male admitted with atypical chest and epigastric pain. Cardiac evaluation has been negative. Liver tests were normal. He also had abdominal imaging with no abnormality seen. Indication for procedure: Epigastric pain, atypical chest pain Endoscopic findings:[After informed consent was obtained, the patient was placed in the left lateral decubitus position. The gastroscope was inserted in the upper esophagus under direct vision with no resistance encountered. Esophageal mucosa appeared normal with squamocolumnar junction sharply demarcated above a small hiatal hernia. The endoscope was advanced in the stomach which was carefully examined including retroflexed view of the cardia and fundus with no abnormality seen. The pyloric channel, duodenal bulb, second and third portion of the duodenum were normal. The endoscope was withdrawn and patient appeared to tolerate the procedure well. Impression: Small hiatal hernia-otherwise normal EGD Recommendations: Would continue trial of PPI therapy at discharge. Anesthesia: MAC Surgeon / Physician: Boom Lucas Estimated blood loss: none Specimens: none sent Condition: stable Disposition: post procedure unit Results - Labs CBC & BMP: 10/03/16 04:28 10/03/16 04:28 Discharge Plan - Discharge Medications No Action No Known Home Medications [No Known Home Medications] - Follow Up or Referral - Forms/Instructions
[2016-10-03 12:25] VITALS: BP 133/74
[2016-10-03] MEDS: GABAPENTIN 100 MG CAPSULE PO SCH (12:57)
[2016-10-03] MEDS: PANTOPRAZOLE 40 MG TABLET PO SCH (12:58)
[2016-10-03] MEDS: traMADol 50 MG TABLET PO SCH (12:58)
[2016-10-03] MEDS: ACETAMINOPHEN 325 MG TABLET PO SCH (13:00)
--- NOTE | 2016-10-03 14:16 | Anesthesia Post-Op ---
Anesthesia Post OP - Post Ansesthetic Evaluation Patient seen in post op: Yes Resp: within normal limits CV: within normal limits Mental: within normal limits Temp: within normal limits [id number]: within normal limits Nausea and Vomiting: within normal limits Pain: within normal limits
--- NOTE | 2016-10-04 14:09 | Cardiology Progress Note ---
I, Nancy Herman RN, am scribing for, and in the presence of, Tomi Hough MD 14:07. Assessment and Plan (1) Chest pain Status: Acute Assessment and plan: Initial assessment and plan 10/01/2016: The patient is very vague regarding his "chest pain". He states his indigestion or gas. Is in the left anterior chest area about a quarter sized area. There is some chest wall tenderness at that time area but he also has tenderness of his abdomen. Differential diagnosis would include chest wall pain, GI, muscle skeletal, or some other cause. My suspicion that this is ACS or even cardiac related is low. Plan/recommendations: Serial isoenzymes. Serial EKGs. Treat chest wall pain-tramadol, Tylenol, gabapentin tx for GE reflux Further workup is being done An echo has been ordered. Will review it. At this point, I do not believe he needs a heart catheter or treadmill. It could be done later, outpatient if needed. Assessment and plan 10/02/2016: He has ongoing reproducible left chest wall pain. We'll give a trial of: Tramadol 50 mg by mouth twice a day Tylenol 325 mg by mouth now and twice a day Gabapentin 100 mg by mouth 3 times a day will Assess response to therapy I discussed with the patient. He agrees with the plan. He requests being better before being discharged. I told him we would try our best. Assessment and plan 10/03/2016: Chest wall pain is better He had an E scope which was unremarkable, as best I understand I discussed with him about getting an outpatient treadmill/Cardiolite. He declines Discussed with him about seeing him in late November. He agrees. He will call me if he decides to cancel it. Of note, on the date of 10/03/16 at about 11 AM or so, I saw the patient, evaluated him, and made decisions on management. I am finishing this note at a later time. 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 Segundo is seen resting in bed in no acute distress. He reports he continues to have some vague chest pain, but states it is better than on admission. He denies any shortness of breath, palpitations, or dizziness. night monitor currently shows sinus bradycardia with heart rates in the 50s. Discharge planning has been started. He has been seen by GI and had an EGD this morning which showed small hiatal hernia. It looks like there may be planning for a colonoscopy outpatient after discharge. We offered patient an outpatient stress test which he declined. We will schedule appointment with Dr. johnson in November. Exam (Progress Note) - Constitutional Vitals: Period Temp Pulse Resp BP Sys/[place] Pulse Ox Last 24 Hr 96.6 F-98.6 F 46-66 15-21 104-171/54-85 94-100 Exam: General: Present: Appears Well, No Apparent Distress HEENT: Present: PERRL, Mucus Membranes Moist Neck: Present: Supple Neck, Midline Trachea, No Bruit Cardiac: Present: Reg Rate and Rhythm, Bradycardia Lungs: Present: Scattered Rhonchi, No Wheezes, No Rales. Absent: Oxygen Neuro: Absent: Resting Tremor, Essential Tremor Abdomen: Present: Soft, Active Bowel Sounds, Non-Tender Musculoskeletal: Present: Normal Range of Motion Gait: Present: Poor Gait Extremities: Present: No Edema, Normal Upper Extr. Pulses, Normal Lower Extr. Pulses Result/EKG - Labs CBC & BMP: 10/03/16 04:28 10/03/16 04:28 Lab Results: I have reviewed the past 24 hour labs Labs: Laboratory Results - last 24 hr 10/03/16 10/03/16 04:28 04:28 WBC 4.3 RBC 3.92 Hgb 12.3 L Hct 38.1 L MCV 97.2 MCH 31 MCHC 32.3 RDW 13.6 Plt Count 173 MPV 10.9 Neut % (Auto) 31.7 L Lymph % (Auto) 60.6 H [place] % (Auto) 5.6 Eos % (Auto) 2.1 Baso % (Auto) 0.0 Neut # (Auto) 1.4 Lymph # (Auto) 2.6 [place] # (Auto) 0.2 Eos # (Auto) 0.1 Baso # (Auto) 0.0 Total Counted 100 Immature Gran % 0.0 Nucleated RBC % 0.0 Immature Gran # 0.00 Segmented Neutrophils 29 L Lymphocytes 63 H Monocytes 8 Nucleated RBCs # 0.00 Atypical Lymphocytes Few Platelet Estimate Adequate Hypochromasia 1+ Macrocytosis Slight Sodium 146 H Potassium 4.7 Chloride 110 H Carbon Dioxide 30 Anion Gap 10.7 BUN 14 Creatinine 1.00 GFR Calculation 96 BUN/Creatinine Ratio 14.00 Glucose 79 Calculated Osmolality 289.6 Calcium 7.9 L Phosphorus 4.1 Magnesium 2.5 H Total Bilirubin 0.60 AST 17 ALT 20 Alkaline Phosphatase 62 Total Protein 5.5 L Albumin 2.9 L Globulin 2.6 Albumin/Globulin Ratio 1.1 - EKG EKG results: interpreted by me EKG shows: bradycardia, sinus rhythm Specialty Discharge - Follow Up or Referrals Follow up with: Tomi Hough MD [Physician] - (12/04 @ 920) Boom Lucas MD [Physician] - (office will call you with appt) I, Tomi Hough MD, personally performed the services described in this documentation, ascribed by Nancy Herman RN in my presence, and it is both accurate and complete .
== END 2016-10-03 16:32 | disposition home or self-care (01) | DRG 313 ==
LOC: N.ED 08:21 → N.EDINP 11:05 → SUATTDRO 11:05 → N.EDINP 11:48 → N.TELES 12:22
PROVIDERS: ADMIT Internal Medicine; ATTEND Internal Medicine